=== PATIENT | male | born 1980 | race Caucasian/White ===

== ENCOUNTER 2016-10-25 20:47 | Emergency (ER) | payer OTHER ==
[~2016-10-25] VITALS: Ht 188 cm; Wt 109.1 kg
[~2016-10-25 20:47] MED LIST: AMOXICILLIN 50500 MG PO; CEPHALEXIN500 M1 PO; NO HOME MEDICATIONS; ULTRAM 50MG TAB50 MG PO
[2016-10-25 20:49] VITALS: BP 152/98; TEMP 98.1
[2016-10-25] MEDS ORDERED: AMOXICILLIN 8751 TAB PO (21:08)
[2016-10-25 21:19] VITALS: PULSE 86
== END 2016-10-25 21:24 | disposition home or self-care (01) ==
LOC: COL.ER 20:47
DX: H66.011 Acute suppurative otitis media with spontaneous rupture of ear drum, right ear (principal)

== ENCOUNTER 2018-06-07 13:15 | Emergency (ER) | payer SELFPAY ==
[~2018-06-07] VITALS: Ht 188 cm; Wt 118.2 kg
[~2018-06-07 13:15] MED LIST changes: +AMOXICILLIN 8751 TAB PO
[2018-06-07 13:18] VITALS: BP 163/96; TEMP 98.2
[2018-06-07] MEDS ORDERED: NORCO 325 MG-51 TAB PO (14:13)
[2018-06-07 14:30] VITALS: PULSE 97
[2018-06-07] MEDS ORDERED: CRUTCHES MC ×2 (14:33→14:34)
== END 2018-06-07 14:30 | disposition home or self-care (01) ==
LOC: COL.ER 13:15
DX: S99.911A Unspecified injury of right ankle, initial encounter (principal); S82.64XA Nondisplaced fracture of lateral malleolus of right fibula, initial encounter for closed fracture; F17.210 Nicotine dependence, cigarettes, uncomplicated; X50.1XXA Overexertion from prolonged static or awkward postures, initial encounter
CPT/HCPCS: Q4045

== ENCOUNTER 2019-03-08 12:32 | Emergency (ER) | payer SELFPAY ==
[~2019-03-08] VITALS: Ht 188 cm; Wt 96.4 kg
[~2019-03-08 12:32] MED LIST changes: +CRUTCHES MC; +NORCO 325 MG-51 TAB PO
[2019-03-08 12:41] VITALS: BP 120/76; TEMP 97.8
[2019-03-08 15:26] VITALS: PULSE 99
== END 2019-03-08 15:26 | disposition home or self-care (01) ==
LOC: COL.ER 12:32
DX: S06.0X1A Concussion with loss of consciousness of 30 minutes or less, initial encounter (principal); S01.111A Laceration without foreign body of right eyelid and periocular area, initial encounter; S80.212A Abrasion, left knee, initial encounter; S80.211A Abrasion, right knee, initial encounter; S60.512A Abrasion of left hand, initial encounter; I10 Essential (primary) hypertension; F17.210 Nicotine dependence, cigarettes, uncomplicated; F12.90 Cannabis use, unspecified, uncomplicated; W10.9XXA Fall (on) (from) unspecified stairs and steps, initial encounter; Y92.009 Unspecified place in unspecified non-institutional (private) residence as the place of occurrence of the external cause

== ENCOUNTER 2019-09-07 15:16 | Emergency (ER) | payer SELFPAY ==
[~2019-09-07] VITALS: Ht 188 cm; Wt 104.5 kg
[2019-09-07 15:22] VITALS: TEMP 97.9
[2019-09-07] MEDS ORDERED: NORCO 325 MG-51 TAB PO (16:22)
[2019-09-07] MEDS ORDERED: MEDROL 4MG DOSPA4 MG PO (16:22)
[2019-09-07] MEDS ORDERED: FLEXERIL 1010 MG/TAB PO (16:22)
[2019-09-07 16:55] VITALS: BP 128/89; PULSE 61
== END 2019-09-07 16:57 | disposition home or self-care (01) ==
LOC: COL.ER 15:16
DX: S30.0XXA Contusion of lower back and pelvis, initial encounter (principal); M54.41 Lumbago with sciatica, right side; I10 Essential (primary) hypertension; F17.210 Nicotine dependence, cigarettes, uncomplicated; W19.XXXA Unspecified fall, initial encounter
CPT/HCPCS: J1885

== ENCOUNTER 2020-07-02 15:44 | Emergency (ER) | payer SELFPAY ==
[~2020-07-02] VITALS: Ht 188 cm; Wt 118.2 kg
[~2020-07-02 15:44] MED LIST changes: +FLEXERIL 1010 MG/TAB PO; +MEDROL 4MG DOSPA4 MG PO
[2020-07-02 15:48] VITALS: BP 145/105; TEMP 98.3
[2020-07-02 17:21] VITALS: PULSE 99
== END 2020-07-02 17:31 | disposition home or self-care (01) ==
LOC: COL.ER 15:44
DX: S61.213A Laceration without foreign body of left middle finger without damage to nail, initial encounter (principal); F17.210 Nicotine dependence, cigarettes, uncomplicated; W26.9XXA Contact with unspecified sharp object(s), initial encounter; Y92.69 Other specified industrial and construction area as the place of occurrence of the external cause

== ENCOUNTER → 2020-07-17 | Outpatient (CLI) | payer SELFPAY ==
[2020-07-17 10:27] VITALS: BP 153/103; PULSE 66; TEMP 97
== END ==
LOC: COL.ER 10:15
DX: Z48.02 Encounter for removal of sutures (principal)

== ENCOUNTER 2023-10-07 00:48 | Emergency (ER) | payer OTHER ==
[~2023-10-07] VITALS: Ht 188 cm; Wt 106.8 kg
[2023-10-07 00:58] VITALS: BP 161/91; TEMP 98.2
[2023-10-07] MEDS ORDERED: NAPROSYN500 MG PO (02:48)
[2023-10-07 03:10] VITALS: PULSE 90
== END 2023-10-07 03:10 | disposition home or self-care (01) ==
LOC: COL.ER 00:48
DX: J06.9 Acute upper respiratory infection, unspecified (principal); M25.511 Pain in right shoulder; F17.200 Nicotine dependence, unspecified, uncomplicated
CPT/HCPCS: J1885

== ENCOUNTER 2023-12-30 08:11 | Emergency (ER) | payer OTHER ==
[~2023-12-30] VITALS: Ht 188 cm; Wt 106.8 kg
[~2023-12-30 08:11] MED LIST changes: +NAPROSYN500 MG PO
[2023-12-30 08:27] VITALS: TEMP 97.6
[2023-12-30] MEDS ORDERED: Methocarbamol 750 MG TAB PO ONE (08:45)
[2023-12-30] MEDS ORDERED: Ibuprofen 600 MG TAB PO ONE (08:45)
[2023-12-30] MEDS ORDERED: INDOCIN 25MG CA25 MG PO (09:07)
[2023-12-30] MEDS ORDERED: ROBAXIN 50500 MG/TAB PO (09:07)
[2023-12-30 09:30] VITALS: BP 136/92; PULSE 74
== END 2023-12-30 09:30 | disposition home or self-care (01) ==
LOC: COL.ER 08:11
DX: M75.21 Bicipital tendinitis, right shoulder (principal)